=== PATIENT | female | born 1970 | race African-American/Black ===

== ENCOUNTER 2018-12-19 18:42 | Emergency (ER) | payer SELFPAY ==
[~2018-12-19] VITALS: Ht 167.6 cm; Wt 75.0 kg
[2018-12-19 18:43] VITALS: BP 120/70
--- NOTE | 2018-12-19 19:46 | NUR ---
PT ARRVIES TO ED VIA EMS FOR SOB AND BEING HOMELESS PER EMS. PT REPORTS THAT WHEN SHE WAS WALKING SHE BECAME SOB AND NEEDING AN AMBULANCE. PT WAS SEEN AT [facility] FOR SAME SYMPTOMS AND DC PER EMS. PT ABLE TO SPEAK IN FULL SENTANCES AND VSS AT THIS TIME. NO S/SX OF DISTRESS. PT CONNECTED TO MONITORS AND CALL LIGHT IN REACH. AWAITING FURTHER ORDERS.
--- NOTE | 2018-12-19 20:15 | NUR ---
PT GIVEN BLANKET FOR COMFORT.
[2018-12-19 20:31] LABS: MD YES; MEAN CORPUSCULAR HEMOGLOBIN 32.1 pg (27.0-34.8); MEAN CORPUSCULAR HGB CONC 32.5 g/dL (32.4-35.8); MEAN CORPUSCULAR VOLUME 98.8 fL (80-100); MEAN PLATELET VOLUME 8.2 fL (7.4-10.4); PLATELET COUNT 283 x10^3/uL (130-400); RED BLOOD COUNT 3.78 x10^6/uL (3.82-5.3); RED CELL DISTRIBUTION WIDTH 14.4 % (9.6-15.2)
[2018-12-19 20:38] LABS: ALANINE AMINOTRANSFERASE 21 U/L (12-78); ANION GAP 7 mmol/L (5-15); CALCIUM 8.8 mg/dL (8.5-10.1); CHLORIDE 106 mmol/L (98-107); CREATININE 0.82 mg/dL (0.55-1.02)
[2018-12-19 20:43] LABS: ALKALINE PHOSPHATASE 85 U/L (45-117); BILIRUBIN,TOTAL 0.4 mg/dL (0.2-1.0); TOTAL PROTEIN 8.2 g/dL (6.4-8.2); TROPONIN I 0.017 ng/mL (0.000-0.045)
[2018-12-19 20:48] LABS: <PLATELET ESTIMATE> ADEQUATE; <PLT MORPHOLOGY> NORMAL PLT MORPH; <RBC MORPHOLOGY> NORMAL; BASOS% (MANUAL) 3 % (0-1); LYMPH#(MANUAL) 2.04 x10^3/uL (1-3.4); LYMPHS% (MANUAL) 30 % (22-44); MONOS#(MANUAL) 0.34 x10^3/uL (0.3-2.7); MONOS% (MANUAL) 5 % (2-9); SEG#(MANUAL) 4.22 x10^3/uL (1.8-6.8); SEGS% (MANUAL) 62 % (42-75)
== END 2018-12-19 22:18 | disposition home or self-care (01) ==
LOC: ED 21:47
DX: R06.00 Dyspnea, unspecified (principal); I10 Essential (primary) hypertension; F17.200 Nicotine dependence, unspecified, uncomplicated
CPT/HCPCS: 36415; 71045; 80053; 83880; 84484; 85025; 93005; 99284

== ENCOUNTER 2018-12-25 07:02 | Emergency (ER) | payer SELFPAY ==
[~2018-12-25] VITALS: Ht 162.6 cm; Wt 111.3 kg
--- NOTE | 2018-12-25 07:41 | NUR ---
Pt presents to ED with SOB, chronic. Pt placed on BP, pulse ox, heart monitor. EKG done in triage. Pt respirations WNL, pulse ox 99%, respirs 14, no obvious distress noted at this time. Pt denies any needs or concerns.
[2018-12-25] MEDS ORDERED: LISI2.5T PO (07:44)
[2018-12-25] MEDS ORDERED: ASPIRIN 81 MG TABLET CHEW ONE (07:46)
[2018-12-25] MEDS ORDERED: ASPIRIN 81 MG TABLET CHEW PO ONE (08:00)
--- NOTE | 2018-12-25 08:21 | NUR ---
Pt resting in bed, lab at bedside. Call light in reach. Pt denies any needs or concerns at this time.
[2018-12-25 08:45] LABS: ALBUMIN 3.2 g/dL (3.4-5.0); ANION GAP 5 mmol/L (5-15); CALCIUM 9.1 mg/dL (8.5-10.1); CREATININE 0.84 mg/dL (0.55-1.02)
[2018-12-25 08:48] LABS: TROPONIN I 0.035 ng/mL (0.000-0.045)
[2018-12-25 08:57] LABS: CHLORIDE 112 mmol/L (98-107)
[2018-12-25 09:02] LABS: BASOPHILS # (AUTO) 0.03 x10^3/uL (0-0.1); BASOPHILS % (AUTO) 1 % (0-1); EOSINOPHILS % (AUTO) 2 % (1-7); LYMPHOCYTES # (AUTO) 1.87 x10^3/uL (1-3.4); LYMPHOCYTES % (AUTO) 34 % (22-44); MD SCAN; MEAN CORPUSCULAR HEMOGLOBIN 31.4 pg (27.0-34.8); MEAN CORPUSCULAR HGB CONC 31.7 g/dL (32.4-35.8); MONOCYTES # (AUTO) 0.35 x10^3/uL (0.2-0.8); MONOCYTES % (AUTO) 6 % (2-9); NEUTROPHILS # (AUTO) 3.19 x10^3/uL (1.8-6.8); NEUTROPHILS % (AUTO) 58 % (42-75); PLATELET COUNT 178 x10^3/uL (130-400); RED BLOOD COUNT 3.92 x10^6/uL (3.82-5.3); RED CELL DISTRIBUTION WIDTH 14.4 % (9.6-15.2)
--- NOTE | 2018-12-25 09:33 | NUR ---
pt discharged with discharge instructions and follow up instructions.
[2018-12-25 09:36] VITALS: BP 137/75
== END 2018-12-25 09:38 | disposition home or self-care (01) ==
LOC: ED 08:48
DX: R07.89 Other chest pain (principal); I10 Essential (primary) hypertension; Z59.0 Homelessness; F17.210 Nicotine dependence, cigarettes, uncomplicated
CPT/HCPCS: 36415; 71045; 80048; 82040; 83880; 84484; 85025; 93005; 99284

== ENCOUNTER 2019-06-14 18:04 | Emergency (ER) | payer MEDICAID ==
[~2019-06-14] VITALS: Ht 162.6 cm; Wt 104.0 kg
[~2019-06-14 18:04] MED LIST: LISI2.5T PO
--- NOTE | 2019-06-14 18:15 | NUR ---
Pt not in lobby at this time
[2019-06-14 18:16] VITALS: BP 173/105
[2019-06-14 19:23] LABS: MEAN CORPUSCULAR HEMOGLOBIN 33.6 pg (27.0-34.8); MEAN CORPUSCULAR HGB CONC 32.2 g/dL (32.4-35.8); MEAN CORPUSCULAR VOLUME 104.5 fL (80-100); MEAN PLATELET VOLUME 8.6 fL (7.4-10.4); PLATELET COUNT 190 x10^3/uL (130-400); RED BLOOD COUNT 3.36 x10^6/uL (3.82-5.3); RED CELL DISTRIBUTION WIDTH 14.7 % (9.6-15.2)
[2019-06-14 19:35] LABS: ALBUMIN 2.4 g/dL (3.4-5.0); ANION GAP 7 mmol/L (5-15); CALCIUM 8.5 mg/dL (8.5-10.1); CHLORIDE 115 mmol/L (98-107); CREATININE 1.05 mg/dL (0.55-1.02)
--- NOTE | 2019-06-14 19:38 | NUR ---
PT SITTING IN BED, DENIES ANY CURRENT NEEDS OR CONCERNS. CALL LIGHT IN REACH.
[2019-06-14 19:57] LABS: BASOPHILS # (AUTO) 0.04 x10^3/uL (0-0.1); BASOPHILS % (AUTO) 1 % (0-1); EOSINOPHILS % (AUTO) 8 % (1-7); LYMPHOCYTES # (AUTO) 2.19 x10^3/uL (1-3.4); LYMPHOCYTES % (AUTO) 26 % (22-44); MD SCAN; MONOCYTES # (AUTO) 0.53 x10^3/uL (0.2-0.8); MONOCYTES % (AUTO) 6 % (2-9); NEUTROPHILS # (AUTO) 5.08 x10^3/uL (1.8-6.8); NEUTROPHILS % (AUTO) 59 % (42-75)
== END 2019-06-14 20:15 | disposition home or self-care (01) ==
LOC: ED 20:09
DX: J15.9 Unspecified bacterial pneumonia (principal); I10 Essential (primary) hypertension; F17.200 Nicotine dependence, unspecified, uncomplicated
CPT/HCPCS: 36415; 71045; 80048; 82040; 85025; 93005; 99284